=== PATIENT | female | born 1985 | race Caucasian/White ===

== ENCOUNTER 2016-12-17 10:52 | Emergency (ER) | payer OTHER ==
--- NOTE | 2016-12-17 16:23 | ED ORDER SUMMARY ---
..... Patient: SAUL DUNN OrderSheet [facility] VisitID: [id number] [place] [address] 31y, F Registration Date/Time: 12/17/2016 ORDER SHEET Weight: 63.5 kg Allergies: No Known Drug Allergy GENERAL ORDERS: Old Records ([place] from yesterday) (11:23 12/17/2016 Leandra ALTMAN) (Ack 11:24 PWeiler ER Tech1) (15:19 PWeiler ER Tech1) CBC w Diff Urgent (13:44 12/17/2016 Leandra ALTMAN) (Ack 13:49 PWeiler ER Tech1) (15:19 PWeiler ER Tech1) BMP Urgent (13:44 12/17/2016 Leandra ALTMAN) (Ack 13:49 PWeiler ER Tech1) (15:19 PWeiler ER Tech1) MEDICATION ORDERS: Phenergan IV 12.5 mg (NOW) (12:06 12/17/2016 Leandra ALTMAN) (12:23 SSambou R.N.) IV FLUIDS: Zofran IV 4 mg (NOW) (12:06 12/17/2016 Leandra ALTMAN) (12:22 SSambou R.N.) Demerol IV 12.5 mg (NOW) (13:08 12/17/2016 Leandra ALTMAN) (13:35 SSambou R.N.) ORDER SHEET NOTES: [Electronically signed by Laurie Amaro R.N. (17:09 12/17/2016)] [Electronically signed by Farrukh Holland MD (13:13 12/18/2016)] [Electronically locked/signed by Laurie Amaro R.N. (17:09 12/17/2016)]
--- NOTE | 2016-12-17 16:23 | ED ORDER SUMMARY ---
..... Patient: SAUL DUNN OrderSheet [facility] VisitID: [id number] [place] [address] 31y, F Registration Date/Time: 12/17/2016 ORDER SHEET Weight: 63.5 kg Allergies: No Known Drug Allergy GENERAL ORDERS: Old Records ([place] from yesterday) (11:23 12/17/2016 Leandra ALTMAN) (Ack 11:24 PWeiler ER Tech1) (15:19 PWeiler ER Tech1) CBC w Diff Urgent (13:44 12/17/2016 Leandra ALTMAN) (Ack 13:49 PWeiler ER Tech1) (15:19 PWeiler ER Tech1) BMP Urgent (13:44 12/17/2016 Leandra ALTMAN) (Ack 13:49 PWeiler ER Tech1) (15:19 PWeiler ER Tech1) MEDICATION ORDERS: Phenergan IV 12.5 mg (NOW) (12:06 12/17/2016 Leandra ALTMAN) (12:23 SSambou R.N.) IV FLUIDS: Zofran IV 4 mg (NOW) (12:06 12/17/2016 Leandra ALTMAN) (12:22 SSambou R.N.) Demerol IV 12.5 mg (NOW) (13:08 12/17/2016 Leandra ALTMAN) (13:35 SSambou R.N.) ORDER SHEET NOTES: [Electronically signed by Laurie Amaro R.N. (17:09 12/17/2016)] [Electronically signed by Farrukh Holland MD (13:13 12/18/2016)] [Electronically locked/signed by Laurie Amaro R.N. (17:09 12/17/2016)]
--- NOTE | 2016-12-17 16:23 | ED CLINICAL REPORT ---
Clinical Report - Physicians/Mid Levels [address] [place] [address] 12/17/2016 11:01 Patient: SAUL DUNN Time Seen: 11:14 Dec 17 2016. Arrived- By private vehicle. Historian- patient. CPT: ER phys charges level 4 (#[id number]). HISTORY OF PRESENT ILLNESS Chief Complaint: ABDOMINAL PAIN and VOMITING. At its maximum, severity described as moderate. When seen in the E.D., severity described as moderate. Modifying factors- worsened by movement. Not relieved by anything. This started today patient was hospitalized at [facility] for 3 days with a diagnosis of gonorrhea PID. Patient received antibiotics and was discharged on doxycycline. Patient has been unable to keep by mouth down today. Patient has also had no pain control. and is still present. It is described as "pain" and cramping and it is described as located in the right pelvis and left pelvis and in the pelvic area. The patient has had nausea and vomiting. No loss of appetite or diarrhea. No recent travel. Similar symptoms previously: None. Recent medical care: The patient was seen recently at another facility and hospitalized. REVIEW OF SYSTEMS No constipation, black stools, hematemesis, difficulty with urination or pain with urination. No urinary frequency, fever, sore throat, chest pain or difficulty breathing. No cough, joint pain, skin rash, chills or back pain. Denies current . All systems otherwise negative, except as recorded above. PAST HISTORY No history of peptic ulcer. No history of gallstones or bowel obstruction. Has not had urinary calculi. Surgeries: No prior abdominal surgery. Medications: Doxycycline Hyclate Oral (Capsule 100 mg). Allergies: No Known Drug Allergy. SOCIAL HISTORY Light tobacco smoker (cigarette)- less than 1/2 a pack per day. Occasional alcohol use. ADDITIONAL NOTES The nursing notes have been reviewed. PHYSICAL EXAM Vital Signs: 12/17/2016 11:18 BP: 112/53. HR: 50. RR: 14. O2 saturation: 100%. Temp: 97.7 F. Pain level now: 710. Appearance: Alert. Anxious. Appears to be in pain. Patient in moderate distress. Eyes: Eyes normal inspection. ENT: Pharynx normal. Neck: Normal inspection. CVS: Normal heart rate and rhythm. Heart sounds normal. Pulses normal. Respiratory: No respiratory distress. Breath sounds normal. Chest nontender. Abdomen: Soft. Moderate tenderness in the lower abdomen with guarding present. Bowel sounds normal. No mass. Back: Normal inspection. No CVA tenderness. Skin: Normal skin color. No rash. Neuro: Oriented X 3. LABS, X-RAYS, AND EKG Laboratory Tests: CBC w Diff: (CHRISTY: 12/17/2016 15:15) ( MsgRcvd 12/17/2016 15:23) Final results Test Result Flag Units (Reference) WHITE BLOOD COUNT 9.8 K/uL (4.5-11.5) RED BLOOD COUNT 4.15 M/uL (4.00-5.20) HEMOGLOBIN 12.7 gm/dL (12.0-16.0) HEMATOCRIT 38.6 % (36.0-46.0) MEAN CELL VOLUME 93 fL (80-100) MEAN CORPUSCULAR HGB 31 pg (26-34) MEAN CORPUSCULAR HGB CONC 33 g/dL (31-37) RED CELL DISTRIBUTION WIDTH 12.2 % (11.6-14.8) PLATELET COUNT 349 K/uL (150-400) NEUTROPHIL % 88.1 H % (50-75) LYMPH % 6.9 L % (25-40) MONO % 4.5 % (3-14) EOSINOPHIL % 0.2 % (0-4) BASOPHIL % 0.3 % (0-2) BMP: (CHRISTY: 12/17/2016 15:15) ( MsgRcvd 12/17/2016 15:48) Final results Test Result Flag Units (Reference) GLUCOSE 92 mg/dL (70-110) BUN 9 mg/dL (7-18) CREATININE 0.6 mg/dL (0.6-1.3) Estimated GFR >60 mL/min Estimated GFR- >60 mL/min Note: Persistent reduction over 3 months in eGFR<60 mL/min/1.73 m2 defines CKD. Patients with eGFR values>=60 mL/min/1.73 m2 may also have CKD if evidence ofpersistent proteinuria. Additional information may be foundat www.kidney.org. SODIUM 142 mmol/L (136-145) POTASSIUM 3.8 mmol/L (3.5-5.1) CHLORIDE 105 mmol/L (98-107) CARBON DIOXIDE 26 mmol/L (21-32) CALCIUM 9.2 mg/dL (8.5-10.1) . PROGRESS AND PROCEDURES Course of Care: Delay of 90 minutes in care due to no blood drawn. IV NS Zofran 4 mg Iv Phenergan 12.5 mg IV Demerol 12.5 mg Iv Patient is stable. Symptoms much better. Patient/family counseled. Old inpatient records reviewed. Disposition: Discharged. Condition: stable and improved. CLINICAL IMPRESSION Acute pelvic inflammatory disease due to gonococcal infection. Nausea and vomiting due to illness and pain. INSTRUCTIONS No strenuous activity. Rest. Do not work for two days until better. Drink plenty of fluids. No sexual contact until released. Warnings: Further evaluation is necessary. GENERAL WARNINGS: Return or contact your physician immediately if your condition worsens or changes unexpectedly, if not improving as expected, or if other problems arise. Your Current Medications: CONTINUE TAKING THE FOLLOWING MEDICATIONS: Doxycycline Hyclate Oral : Capsule 100 mg. Prescription Medications: Hydrocodone/APAP 5mg/325mg: take 1 to 2 orally every 6 hours as needed for pain. Dispense fifteen (15). No refills. Zofran (orally disintegrating tablets) 4 mg: take 1 orally every 6 hours as needed for nausea. Dispense ten (10). No refill. Substitution is permissible. Understanding of the discharge instructions verbalized by patient and family. Discharge instructions reviewed with and understanding was verbalized by [employer] field coordinator. (Electronically signed by Farrukh Holland MD 12/18/2016 13:13)
--- NOTE | 2016-12-17 16:23 | ED NURSING NOTES ---
Clinical Report - Nurses [facility] [place] [address] 12/17/2016 11:01 Patient: SAUL DUNN TRIAGE Triage time 11:19. Chief Complaint: ABDOMINAL PAIN, NAUSEA and VOMITING. --11:26 Sheriff Holbrook R.N. 11:18 12/17/16. BP: 112/53. HR: 50. RR: 14. O2 saturation: 100%. Temp: 97.7 F. Pain level now: 12/27. --11:26 Sheriff Holbrook R.N. Weight: 63.5 kg. Height/Length: 68 inches. BMI: 21.3. --11:23 Sheriff Holbrook R.N. Medications Doxycycline Hyclate Oral (Capsule 100 mg). --11:25 Sheriff Holbrook R.N. Allergies No Known Drug Allergy. --11:26 Sheriff Holbrook R.N. History Arrived by private vehicle. Historian: patient. Accompanied by family. Onset. (3AM.). ( Discharged from [facility] yesterday. Patient was admitted and treated for PID.). SURGERY HX: ( Face). SOCIAL HX: Light tobacco smoker- less than 1/2 a pack per day. Alcohol use; consumes beer occasionally. No drug use. FALL RISK ASSESSMENT: Fall risk assessment completed. No fall risk identified. NUTRITIONAL RISK ASSESSMENT: The nutritional risk assessment revealed no deficiencies. FUNCTIONAL ASSESSMENT: Functional assessment: no impairments noted. LEARNING NEEDS ASSESSMENT: The learning needs assessment revealed no barriers. SKIN INTEGRITY ASSESSMENT: Skin integrity risk assessment completed. No skin integrity risk identified. --11:26 Sheriff Holbrook R.N. PROBLEMS: Pelvic Inflammatory Disease. --11:22 Sheriff Holbrook R.N. PHYSICAL ASSESSMENT To room via wheelchair. Patient gowned. GENERAL / NEURO / PSYCH: Alert. Oriented X 4. Appears anxious. HEENT: Mucous membranes are pink. RESPIRATORY: Respirations not labored. CVS: Capillary refill less than 2 seconds. SKIN: Skin is warm and dry. --11:38 Sheriff Holbrook R.N. NURSING PROGRESS NOTES Head of bed elevated. Two patient identifiers checked. Call light placed in reach. Side rails up x 2. Bed placed in lowest position. Brakes of bed on. --11:38 Sheriff Holbrook R.N. 11:57 12/17/2016 Site #1 started via IV in the right forearm with an 22g angiocath, with aseptic technique and good blood return; one attempt. Saline lock flushed with 10 mL saline. --12:22 Sheriff Holbrook R.N. 12:17 12/17/2016 Zofran (Ondansetron HCl) IVP 4 mg given over 1 hour(s) via site #1. Allergies verified and confirmed 5 rights. IV patency established. IV site checked: no pain, redness, or swelling. IV flushed thoroughly pre- and post-medication administration. IVP given by RN. --12:22 Sheriff Holbrook R.N. 12:17 12/17/2016 PHENERGAN (Promethazine HCl) IVP 12.5 mg given over 1 minute(s) via site #1. Allergies verified and confirmed 5 rights. IV patency established. IV site checked: no pain, redness, or swelling. IV flushed thoroughly pre- and post-medication administration. IVP given by RN. --12:23 Sheriff Holbrook R.N. 13:35 12/17/2016 Demerol (Meperidine HCl) IVP 12.5 mg given over 1 minute(s) via site #1. Allergies verified and confirmed 5 rights. IV patency established. IV site checked: no pain, redness, or swelling. IV flushed thoroughly pre- and post-medication administration. IVP given by RN. --13:35 Sheriff Holbrook R.N. 14:24 12/17/16. BP: 101/55. HR: 63. RR: 18. O2 saturation: 99%. Temp: 98.7 F. --14:26 [place]. DISPOSITION / DISCHARGE 16:20 12/17/2016 Site #1 removed upon discharge. Catheter intact. Pressure dressing applied. --17:07 Laurie Amaro R.N. Departure time: 1634Dec 17 2016. Condition at departure: improved. No learning barriers present. Discharge instructions provided and reviewed with the patient and spouse. Reviewed warnings. Reviewed medication(s). Treatments reviewed. Reviewed referrals. Patient verbalized understanding. Written instructions provided in Nigerien. The patient was discharged home and accompanied by spouse. She left the Emergency Department in a wheelchair and via private vehicle. Spouse driving. --17:07 Laurie Amaro R.N. 17:04 12/17/16. BP: 131/69. HR: 54. RR: 18. O2 saturation: 98%. Temp: 98.7 F. Pain level now 08/27. --17:07 Laurie Amaro R.N. Locked/Released at 12/17/2016 17:09 by Laurie Amaro R.N.
--- NOTE | 2016-12-17 16:23 | ED NURSING NOTES ---
Clinical Report - Nurses [facility] [place] [address] 12/17/2016 11:01 Patient: SAUL DUNN TRIAGE Triage time 11:19. Chief Complaint: ABDOMINAL PAIN, NAUSEA and VOMITING. --11:26 Sheriff Holbrook R.N. 11:18 12/17/16. BP: 112/53. HR: 50. RR: 14. O2 saturation: 100%. Temp: 97.7 F. Pain level now: 12/27. --11:26 Sheriff Holbrook R.N. Weight: 63.5 kg. Height/Length: 68 inches. BMI: 21.3. --11:23 Sheriff Holbrook R.N. Medications Doxycycline Hyclate Oral (Capsule 100 mg). --11:25 Sheriff Holbrook R.N. Allergies No Known Drug Allergy. --11:26 Sheriff Holbrook R.N. History Arrived by private vehicle. Historian: patient. Accompanied by family. Onset. (3AM.). ( Discharged from [facility] yesterday. Patient was admitted and treated for PID.). SURGERY HX: ( Face). SOCIAL HX: Light tobacco smoker- less than 1/2 a pack per day. Alcohol use; consumes beer occasionally. No drug use. FALL RISK ASSESSMENT: Fall risk assessment completed. No fall risk identified. NUTRITIONAL RISK ASSESSMENT: The nutritional risk assessment revealed no deficiencies. FUNCTIONAL ASSESSMENT: Functional assessment: no impairments noted. LEARNING NEEDS ASSESSMENT: The learning needs assessment revealed no barriers. SKIN INTEGRITY ASSESSMENT: Skin integrity risk assessment completed. No skin integrity risk identified. --11:26 Sheriff Holbrook R.N. PROBLEMS: Pelvic Inflammatory Disease. --11:22 Sheriff Holbrook R.N. PHYSICAL ASSESSMENT To room via wheelchair. Patient gowned. GENERAL / NEURO / PSYCH: Alert. Oriented X 4. Appears anxious. HEENT: Mucous membranes are pink. RESPIRATORY: Respirations not labored. CVS: Capillary refill less than 2 seconds. SKIN: Skin is warm and dry. --11:38 Sheriff Holbrook R.N. NURSING PROGRESS NOTES Head of bed elevated. Two patient identifiers checked. Call light placed in reach. Side rails up x 2. Bed placed in lowest position. Brakes of bed on. --11:38 Sheriff Holbrook R.N. 11:57 12/17/2016 Site #1 started via IV in the right forearm with an 22g angiocath, with aseptic technique and good blood return; one attempt. Saline lock flushed with 10 mL saline. --12:22 Sheriff Holbrook R.N. 12:17 12/17/2016 Zofran (Ondansetron HCl) IVP 4 mg given over 1 hour(s) via site #1. Allergies verified and confirmed 5 rights. IV patency established. IV site checked: no pain, redness, or swelling. IV flushed thoroughly pre- and post-medication administration. IVP given by RN. --12:22 Sheriff Holbrook R.N. 12:17 12/17/2016 PHENERGAN (Promethazine HCl) IVP 12.5 mg given over 1 minute(s) via site #1. Allergies verified and confirmed 5 rights. IV patency established. IV site checked: no pain, redness, or swelling. IV flushed thoroughly pre- and post-medication administration. IVP given by RN. --12:23 Sheriff Holbrook R.N. 13:35 12/17/2016 Demerol (Meperidine HCl) IVP 12.5 mg given over 1 minute(s) via site #1. Allergies verified and confirmed 5 rights. IV patency established. IV site checked: no pain, redness, or swelling. IV flushed thoroughly pre- and post-medication administration. IVP given by RN. --13:35 Sheriff Holbrook R.N. 14:24 12/17/16. BP: 101/55. HR: 63. RR: 18. O2 saturation: 99%. Temp: 98.7 F. --14:26 [place]. DISPOSITION / DISCHARGE 16:20 12/17/2016 Site #1 removed upon discharge. Catheter intact. Pressure dressing applied. --17:07 Laurie Amaro R.N. Departure time: 1634Dec 17 2016. Condition at departure: improved. No learning barriers present. Discharge instructions provided and reviewed with the patient and spouse. Reviewed warnings. Reviewed medication(s). Treatments reviewed. Reviewed referrals. Patient verbalized understanding. Written instructions provided in Ghanaian. The patient was discharged home and accompanied by spouse. She left the Emergency Department in a wheelchair and via private vehicle. Spouse driving. --17:07 Laurie Amaro R.N. 17:04 12/17/16. BP: 131/69. HR: 54. RR: 18. O2 saturation: 98%. Temp: 98.7 F. Pain level now 08/27. --17:07 Laurie Amaro R.N. Locked/Released at 12/17/2016 17:09 by Laurie Amaro R.N.
--- NOTE | 2016-12-17 16:23 | ED CLINICAL REPORT ---
Clinical Report - Physicians/Mid Levels [facility] [address] [place] [address] 12/17/2016 11:01 Patient: SAUL DUNN Time Seen: 11:14 Dec 17 2016. Arrived- By private vehicle. Historian- patient. CPT: ER phys charges level 4 (#[id number]). HISTORY OF PRESENT ILLNESS Chief Complaint: ABDOMINAL PAIN and VOMITING. At its maximum, severity described as moderate. When seen in the E.D., severity described as moderate. Modifying factors- worsened by movement. Not relieved by anything. This started today patient was hospitalized at [facility] for 3 days with a diagnosis of gonorrhea PID. Patient received antibiotics and was discharged on doxycycline. Patient has been unable to keep by mouth down today. Patient has also had no pain control. and is still present. It is described as "pain" and cramping and it is described as located in the right pelvis and left pelvis and in the pelvic area. The patient has had nausea and vomiting. No loss of appetite or diarrhea. No recent travel. Similar symptoms previously: None. Recent medical care: The patient was seen recently at another facility and hospitalized. REVIEW OF SYSTEMS No constipation, black stools, hematemesis, difficulty with urination or pain with urination. No urinary frequency, fever, sore throat, chest pain or difficulty breathing. No cough, joint pain, skin rash, chills or back pain. Denies current . All systems otherwise negative, except as recorded above. PAST HISTORY No history of peptic ulcer. No history of gallstones or bowel obstruction. Has not had urinary calculi. Surgeries: No prior abdominal surgery. Medications: Doxycycline Hyclate Oral (Capsule 100 mg). Allergies: No Known Drug Allergy. SOCIAL HISTORY Light tobacco smoker (cigarette)- less than 1/2 a pack per day. Occasional alcohol use. ADDITIONAL NOTES The nursing notes have been reviewed. PHYSICAL EXAM Vital Signs: 12/17/2016 11:18 BP: 112/53. HR: 50. RR: 14. O2 saturation: 100%. Temp: 97.7 F. Pain level now: 710. Appearance: Alert. Anxious. Appears to be in pain. Patient in moderate distress. Eyes: Eyes normal inspection. ENT: Pharynx normal. Neck: Normal inspection. CVS: Normal heart rate and rhythm. Heart sounds normal. Pulses normal. Respiratory: No respiratory distress. Breath sounds normal. Chest nontender. Abdomen: Soft. Moderate tenderness in the lower abdomen with guarding present. Bowel sounds normal. No mass. Back: Normal inspection. No CVA tenderness. Skin: Normal skin color. No rash. Neuro: Oriented X 3. LABS, X-RAYS, AND EKG Laboratory Tests: CBC w Diff: (CHRISTY: 12/17/2016 15:15) ( MsgRcvd 12/17/2016 15:23) Final results Test Result Flag Units (Reference) WHITE BLOOD COUNT 9.8 K/uL (4.5-11.5) RED BLOOD COUNT 4.15 M/uL (4.00-5.20) HEMOGLOBIN 12.7 gm/dL (12.0-16.0) HEMATOCRIT 38.6 % (36.0-46.0) MEAN CELL VOLUME 93 fL (80-100) MEAN CORPUSCULAR HGB 31 pg (26-34) MEAN CORPUSCULAR HGB CONC 33 g/dL (31-37) RED CELL DISTRIBUTION WIDTH 12.2 % (11.6-14.8) PLATELET COUNT 349 K/uL (150-400) NEUTROPHIL % 88.1 H % (50-75) LYMPH % 6.9 L % (25-40) MONO % 4.5 % (3-14) EOSINOPHIL % 0.2 % (0-4) BASOPHIL % 0.3 % (0-2) BMP: (CHRISTY: 12/17/2016 15:15) ( MsgRcvd 12/17/2016 15:48) Final results Test Result Flag Units (Reference) GLUCOSE 92 mg/dL (70-110) BUN 9 mg/dL (7-18) CREATININE 0.6 mg/dL (0.6-1.3) Estimated GFR >60 mL/min Estimated GFR- >60 mL/min Note: Persistent reduction over 3 months in eGFR<60 mL/min/1.73 m2 defines CKD. Patients with eGFR values>=60 mL/min/1.73 m2 may also have CKD if evidence ofpersistent proteinuria. Additional information may be foundat www.kidney.org. SODIUM 142 mmol/L (136-145) POTASSIUM 3.8 mmol/L (3.5-5.1) CHLORIDE 105 mmol/L (98-107) CARBON DIOXIDE 26 mmol/L (21-32) CALCIUM 9.2 mg/dL (8.5-10.1) . PROGRESS AND PROCEDURES Course of Care: Delay of 90 minutes in care due to no blood drawn. IV NS Zofran 4 mg Iv Phenergan 12.5 mg IV Demerol 12.5 mg Iv Patient is stable. Symptoms much better. Patient/family counseled. Old inpatient records reviewed. Disposition: Discharged. Condition: stable and improved. CLINICAL IMPRESSION Acute pelvic inflammatory disease due to gonococcal infection. Nausea and vomiting due to illness and pain. INSTRUCTIONS No strenuous activity. Rest. Do not work for two days until better. Drink plenty of fluids. No sexual contact until released. Warnings: Further evaluation is necessary. GENERAL WARNINGS: Return or contact your physician immediately if your condition worsens or changes unexpectedly, if not improving as expected, or if other problems arise. Your Current Medications: CONTINUE TAKING THE FOLLOWING MEDICATIONS: Doxycycline Hyclate Oral : Capsule 100 mg. Prescription Medications: Hydrocodone/APAP 5mg/325mg: take 1 to 2 orally every 6 hours as needed for pain. Dispense fifteen (15). No refills. Zofran (orally disintegrating tablets) 4 mg: take 1 orally every 6 hours as needed for nausea. Dispense ten (10). No refill. Substitution is permissible. Understanding of the discharge instructions verbalized by patient and family. Discharge instructions reviewed with and understanding was verbalized by thermoscrew operator. (Electronically signed by Farrukh Holland MD 12/18/2016 13:13)
--- NOTE | 2016-12-18 13:14 | ED DISCHARGE INSTRUCTIONS ---
Patient: SAUL DUNN General Instructions [facility] VisitID: [id number] [place] [address] 31y, F Registration Date/Time: 12/17/2016 Acute pelvic inflammatory disease due to gonococcal infection. Nausea and vomiting due to illness and pain. INSTRUCTIONS No strenuous activity. Rest. Do not work for two days until better. Drink plenty of fluids. No sexual contact until released. Warnings: Further evaluation is necessary. GENERAL WARNINGS: Return or contact your physician immediately if your condition worsens or changes unexpectedly, if not improving as expected, or if other problems arise. Your Current Medications: CONTINUE TAKING THE FOLLOWING MEDICATIONS: Doxycycline Hyclate Oral : Capsule 100 mg. Prescription Medications: Hydrocodone/APAP 5mg/325mg: take 1 to 2 orally every 6 hours as needed for pain. Dispense fifteen (15). No refills. Zofran (orally disintegrating tablets) 4 mg: take 1 orally every 6 hours as needed for nausea. Dispense ten (10). No refill. Substitution is permissible. Understanding of the discharge instructions verbalized by patient and family. Discharge instructions reviewed with and understanding was verbalized by paint roller winder. ADDITIONAL INFORMATION Pelvic Inflammatory Disease Pelvic Inflammatory Disease (PID) is an infection of the female organs (uterus, ovary, or Fallopian tubes). This is most often the result of a sexually transmitted disease (STD). Sometimes, PID can be due to an overgrowth of normal bacteria and not caused by an STD. Whatever its cause, PID is a serious problem. It can lead to infertility (inability to become ) unless it is treated promptly. Home Care: Take all of the medicine prescribed, even if you start to feel better before taking all the pills. You may use acetaminophen (Tylenol) or ibuprofen (Motrin, Advil) to control pain, unless another pain medicine was prescribed. [NOTE: If you have chronic liver or kidney disease or ever had a stomach ulcer or GI bleeding, talk with your doctor before using these medicines.] Your sexual partner should contact his own doctor or go to the Public Health Department to be examined. If his test is positive or if he is having symptoms of discharge or burning when passing urine, he should be treated, too. Avoid sexual activity until both you and your partner have finished taking all of the antibiotic medicine, and your doctor has told you that you are cured. Learn about safe sex practices and use these in the future. The safest sex is with a partner who has tested negative and only has sex with you. Condoms offer protection from spreading some sexually transmitted diseases including Gonorrhea, Chlamydia and HIV, but are not a guarantee. Follow Up with your doctor or as advised by our staff. If a culture test was taken, you may call us in three days for the results, or as directed. Another culture test should be taken 4-6 weeks after treatment to be sure the infection has cleared. Follow up with your doctor or the Public Health Department for complete STD screening, including HIV testing. For more information about STD's, contact the National STD Hotline: . Get Prompt Medical Attention if any of the following occur: No improvement after three days of treatment New or increasing lower abdominal pain or back pain Unexpected vaginal bleeding Weakness, dizziness or fainting Repeated vomiting Inability to urinate due to pain Rash or joint pain Painful open sores around the outer vagina Enlarged painful lymph nodes (lumps) in the groin Gonorrhea [Female, Treated] You have an infection called Gonorrhea. This infection is a sexually transmitted disease (STD). It is highly contagious and passed by sexual contact with an infected partner. Gonorrhea can infect the internal sex organs (cervix, uterus or Fallopian tubes). Less often, it can infect the mouth, throat and anus. Women with an infection in the cervix may have no symptoms or only mild symptoms early in the illness. Therefore, it is possible to pass this infection without knowing you have it. When symptoms do occur in a woman, they usually start 2-10 days after exposure. There may be a thick vaginal discharge and pain or burning when passing urine. If the infection spreads to the Fallopian tubes it is called pelvic inflammatory disease ("PID"). This causes lower abdominal pain and fever. If not treated, Gonorrhea can cause infertility (unable to have children) by scarring the Fallopian tubes. PID also increases the risk of ectopic (tubal) in the future. Gonorrhea can be treated and cured. Treatment is with antibiotic medicine. Home Care: Your sexual partner needs to be treated even if there are no symptoms. Your partner should contact their own doctor or go to an urgent care clinic or the Public Health Department to be examined and treated. Avoid sexual activity until both you and your partner have completed all antibiotic medicine and you have been told by your doctor that you are no longer contagious. It is important to take all medicine as directed until it is finished. If not, the illness may recur. Learn about safe sex practices and use these in the future. The safest sex is with a partner who has tested negative and only has sex with you. Condoms offer protection from spreading some sexually transmitted diseases including Gonorrhea, Chlamydia and HIV, but are not a guarantee. Follow Up with your doctor or as advised by our staff. If a culture test was taken, you may call us in three days for the results, or as directed. Another culture test should be taken 4-6 weeks after treatment to be sure the infection has cleared. Follow up with your doctor or the Public Health Department for complete STD screening, including HIV testing. For more information about STD's, contact the National STD Hotline: . Get Prompt Medical Attention if any of the following occur: No improvement after three days of treatment New or increasing lower abdominal pain or back pain Unexpected vaginal bleeding Weakness, dizziness or fainting Repeated vomiting Inability to urinate due to pain Rash or joint pain Painful sores on the outer vaginal area Enlarged painful lymph nodes (lumps) in the groin Ondansetron Oral disintegrating tablet What is this medicine? ONDANSETRON (on JORI se anthony) is used to treat nausea and vomiting caused by chemotherapy. It is also used to prevent or treat nausea and vomiting after surgery. How should I use this medicine? These tablets are made to dissolve in the mouth. Do not try to push the tablet through the foil backing. With dry hands, peel away the foil backing and gently remove the tablet. Place the tablet in the mouth and allow it to dissolve, then swallow. While you may take these tablets with water, it is not necessary to do so. Talk to your management intern regarding the use of this medicine in children. Special care may be needed. What side effects may I notice from receiving this medicine? Side effects that you should report to your doctor or health career technical counselor as soon as possible: allergic reactions like skin rash, itching or hives, swelling of the face, lips, or tongue breathing problems dizziness fast or irregular heartbeat feeling faint or lightheaded, falls fever and chills swelling of the hands and feet tightness in the chest Side effects that usually do not require medical attention (report to your doctor or health career technical counselor if they continue or are bothersome): constipation or diarrhea headache What may interact with this medicine? Do not take this medicine with any of the following medications: -apomorphine -cisapride -dofetilide -dronedarone -pimozide -thioridazine -ziprasidone This medicine may also interact with the following medications: -carbamazepine -phenytoin -rifampicin -tramadol -other medicines that prolong the QT interval (cause an abnormal heart rhythm) What if I miss a dose? If you miss a dose, take it as soon as you can. If it is almost time for your next dose, take only that dose. Do not take double or extra doses. Where should I keep my medicine? Keep out of the reach of children. Store between 2 and 30 degrees C (36 and 86 degrees F). Throw away any unused medicine after the expiration date. What should I tell my health care provider before I take this medicine? They need to know if you have any of these conditions: heart disease history of irregular heartbeat liver disease low levels of magnesium or potassium in the blood an unusual or allergic reaction to ondansetron, granisetron, other medicines, foods, dyes, or preservatives or trying to get breast-feeding What should I watch for while using this medicine? Check with your doctor or health career technical counselor as soon as you can if you have any sign of an allergic reaction. You have been given the following additional information: Pelvic Inflammatory Disease Gonorrhea, Female Ondansetron Oral disintegrating tablet No strenuous activity. Rest. Do not work for two days until better. (Electronically signed by Farrukh Holland MD 12/18/2016 13:13)
--- NOTE | 2016-12-18 13:14 | ED MAR SUMMARY ---
..... Medication Administration Record [facility] [address] [place] [address] Patient: SAUL DUNN Visit ID: [id number] 31y, F Weight: 63.5 kg Height/Length: 68 in BMI: 21.3 ALLERGIES: No Known Drug Allergy Given 12:17 12/17/2016 Sheriff Holbrook R.N. Medication Administered: ZOFRAN [IVP] (ONDANSETRON HCL), Dose: 4 mg IVP over 1 hour(s), Site: #1 right forearm. Medication Ordered: Zofran IV 4 mg (NOW). Given 12:17 12/17/2016 Sheriff Holbrook R.N. Medication Administered: PHENERGAN [IVP] (PROMETHAZINE HCL), Dose: 12.5 mg IVP over 1 minute(s), Site: #1 right forearm. Medication Ordered: Phenergan IV 12.5 mg (NOW). Given 13:35 12/17/2016 Sheriff Holbrook R.NMagui Medication Administered: DEMEROL [IVP] (MEPERIDINE HCL), Dose: 12.5 mg IVP over 1 minute(s), Site: #1 right forearm. Medication Ordered: Demerol IV 12.5 mg (NOW).
--- NOTE | 2016-12-18 13:14 | ED DISCHARGE INSTRUCTIONS ---
Patient: SAUL DUNN General Instructions [facility] VisitID: [id number] [place] [address] 31y, F Registration Date/Time: 12/17/2016 Acute pelvic inflammatory disease due to gonococcal infection. Nausea and vomiting due to illness and pain. INSTRUCTIONS No strenuous activity. Rest. Do not work for two days until better. Drink plenty of fluids. No sexual contact until released. Warnings: Further evaluation is necessary. GENERAL WARNINGS: Return or contact your physician immediately if your condition worsens or changes unexpectedly, if not improving as expected, or if other problems arise. Your Current Medications: CONTINUE TAKING THE FOLLOWING MEDICATIONS: Doxycycline Hyclate Oral : Capsule 100 mg. Prescription Medications: Hydrocodone/APAP 5mg/325mg: take 1 to 2 orally every 6 hours as needed for pain. Dispense fifteen (15). No refills. Zofran (orally disintegrating tablets) 4 mg: take 1 orally every 6 hours as needed for nausea. Dispense ten (10). No refill. Substitution is permissible. Understanding of the discharge instructions verbalized by patient and family. Discharge instructions reviewed with and understanding was verbalized by border inspector. ADDITIONAL INFORMATION Pelvic Inflammatory Disease Pelvic Inflammatory Disease (PID) is an infection of the female organs (uterus, ovary, or Fallopian tubes). This is most often the result of a sexually transmitted disease (STD). Sometimes, PID can be due to an overgrowth of normal bacteria and not caused by an STD. Whatever its cause, PID is a serious problem. It can lead to infertility (inability to become ) unless it is treated promptly. Home Care: Take all of the medicine prescribed, even if you start to feel better before taking all the pills. You may use acetaminophen (Tylenol) or ibuprofen (Motrin, Advil) to control pain, unless another pain medicine was prescribed. [NOTE: If you have chronic liver or kidney disease or ever had a stomach ulcer or GI bleeding, talk with your doctor before using these medicines.] Your sexual partner should contact his own doctor or go to the Public Health Department to be examined. If his test is positive or if he is having symptoms of discharge or burning when passing urine, he should be treated, too. Avoid sexual activity until both you and your partner have finished taking all of the antibiotic medicine, and your doctor has told you that you are cured. Learn about safe sex practices and use these in the future. The safest sex is with a partner who has tested negative and only has sex with you. Condoms offer protection from spreading some sexually transmitted diseases including Gonorrhea, Chlamydia and HIV, but are not a guarantee. Follow Up with your doctor or as advised by our staff. If a culture test was taken, you may call us in three days for the results, or as directed. Another culture test should be taken 4-6 weeks after treatment to be sure the infection has cleared. Follow up with your doctor or the Public Health Department for complete STD screening, including HIV testing. For more information about STD's, contact the National STD Hotline: . Get Prompt Medical Attention if any of the following occur: No improvement after three days of treatment New or increasing lower abdominal pain or back pain Unexpected vaginal bleeding Weakness, dizziness or fainting Repeated vomiting Inability to urinate due to pain Rash or joint pain Painful open sores around the outer vagina Enlarged painful lymph nodes (lumps) in the groin Gonorrhea [Female, Treated] You have an infection called Gonorrhea. This infection is a sexually transmitted disease (STD). It is highly contagious and passed by sexual contact with an infected partner. Gonorrhea can infect the internal sex organs (cervix, uterus or Fallopian tubes). Less often, it can infect the mouth, throat and anus. Women with an infection in the cervix may have no symptoms or only mild symptoms early in the illness. Therefore, it is possible to pass this infection without knowing you have it. When symptoms do occur in a woman, they usually start 2-10 days after exposure. There may be a thick vaginal discharge and pain or burning when passing urine. If the infection spreads to the Fallopian tubes it is called pelvic inflammatory disease ("PID"). This causes lower abdominal pain and fever. If not treated, Gonorrhea can cause infertility (unable to have children) by scarring the Fallopian tubes. PID also increases the risk of ectopic (tubal) in the future. Gonorrhea can be treated and cured. Treatment is with antibiotic medicine. Home Care: Your sexual partner needs to be treated even if there are no symptoms. Your partner should contact their own doctor or go to an urgent care clinic or the Public Health Department to be examined and treated. Avoid sexual activity until both you and your partner have completed all antibiotic medicine and you have been told by your doctor that you are no longer contagious. It is important to take all medicine as directed until it is finished. If not, the illness may recur. Learn about safe sex practices and use these in the future. The safest sex is with a partner who has tested negative and only has sex with you. Condoms offer protection from spreading some sexually transmitted diseases including Gonorrhea, Chlamydia and HIV, but are not a guarantee. Follow Up with your doctor or as advised by our staff. If a culture test was taken, you may call us in three days for the results, or as directed. Another culture test should be taken 4-6 weeks after treatment to be sure the infection has cleared. Follow up with your doctor or the Public Health Department for complete STD screening, including HIV testing. For more information about STD's, contact the National STD Hotline: . Get Prompt Medical Attention if any of the following occur: No improvement after three days of treatment New or increasing lower abdominal pain or back pain Unexpected vaginal bleeding Weakness, dizziness or fainting Repeated vomiting Inability to urinate due to pain Rash or joint pain Painful sores on the outer vaginal area Enlarged painful lymph nodes (lumps) in the groin Ondansetron Oral disintegrating tablet What is this medicine? ONDANSETRON (on JORI se anthony) is used to treat nausea and vomiting caused by chemotherapy. It is also used to prevent or treat nausea and vomiting after surgery. How should I use this medicine? These tablets are made to dissolve in the mouth. Do not try to push the tablet through the foil backing. With dry hands, peel away the foil backing and gently remove the tablet. Place the tablet in the mouth and allow it to dissolve, then swallow. While you may take these tablets with water, it is not necessary to do so. Talk to your internal combustion engineer regarding the use of this medicine in children. Special care may be needed. What side effects may I notice from receiving this medicine? Side effects that you should report to your doctor or health women's health care nurse practitioner as soon as possible: allergic reactions like skin rash, itching or hives, swelling of the face, lips, or tongue breathing problems dizziness fast or irregular heartbeat feeling faint or lightheaded, falls fever and chills swelling of the hands and feet tightness in the chest Side effects that usually do not require medical attention (report to your doctor or health women's health care nurse practitioner if they continue or are bothersome): constipation or diarrhea headache What may interact with this medicine? Do not take this medicine with any of the following medications: -apomorphine -cisapride -dofetilide -dronedarone -pimozide -thioridazine -ziprasidone This medicine may also interact with the following medications: -carbamazepine -phenytoin -rifampicin -tramadol -other medicines that prolong the QT interval (cause an abnormal heart rhythm) What if I miss a dose? If you miss a dose, take it as soon as you can. If it is almost time for your next dose, take only that dose. Do not take double or extra doses. Where should I keep my medicine? Keep out of the reach of children. Store between 2 and 30 degrees C (36 and 86 degrees F). Throw away any unused medicine after the expiration date. What should I tell my health care provider before I take this medicine? They need to know if you have any of these conditions: heart disease history of irregular heartbeat liver disease low levels of magnesium or potassium in the blood an unusual or allergic reaction to ondansetron, granisetron, other medicines, foods, dyes, or preservatives or trying to get breast-feeding What should I watch for while using this medicine? Check with your doctor or health women's health care nurse practitioner as soon as you can if you have any sign of an allergic reaction. You have been given the following additional information: Pelvic Inflammatory Disease Gonorrhea, Female Ondansetron Oral disintegrating tablet No strenuous activity. Rest. Do not work for two days until better. (Electronically signed by Farrukh Holland MD 12/18/2016 13:13)
--- NOTE | 2016-12-18 13:14 | ED MED RECONCILIATION SUMMARY ---
Patient: SAUL DUNN Medication Reconciliation Report [facility] VisitID: [id number] [place] [address] 31y, F Registration Date/Time: 12/17/2016 Weight: 63.5 kg Height/Length: 68 in. BMI: 21.3 ALLERGIES: No Known Drug Allergy The patient's Home Medications are listed below: CONTINUE TAKING THE FOLLOWING MEDICATIONS: Doxycycline Hyclate Oral (100 mg) The source(s) of the original Home Medication information: Not obtained. The following Medications were given to the patient in the Emergency Department: Zofran [IVP] IVP 4 mg, administered: 12/17/2016 12:17:00 PM PHENERGAN [IVP] IVP 12.5 mg, administered: 12/17/2016 12:17:00 PM Demerol [IVP] IVP 12.5 mg, administered: 12/17/2016 1:35:00 PM The following Medications were prescribed to the patient: Hydrocodone/APAP 5mg/325mg: take 1 to 2 orally every 6 hours as needed for pain. Dispense fifteen (15). No refills. -- Farrukh Holland MD Zofran (orally disintegrating tablets) 4 mg: take 1 orally every 6 hours as needed for nausea. Dispense ten (10). No refill. Substitution is permissible. -- Farrukh Holland MD
--- NOTE | 2016-12-18 13:14 | ED MAR SUMMARY ---
..... Medication Administration Record [facility] [address] [place] [address] Patient: SAUL DUNN Visit ID: [id number] 31y, F Weight: 63.5 kg Height/Length: 68 in BMI: 21.3 ALLERGIES: No Known Drug Allergy Given 12:17 12/17/2016 Sheriff Holbrook R.N. Medication Administered: ZOFRAN [IVP] (ONDANSETRON HCL), Dose: 4 mg IVP over 1 hour(s), Site: #1 right forearm. Medication Ordered: Zofran IV 4 mg (NOW). Given 12:17 12/17/2016 Sheriff Holbrook R.N. Medication Administered: PHENERGAN [IVP] (PROMETHAZINE HCL), Dose: 12.5 mg IVP over 1 minute(s), Site: #1 right forearm. Medication Ordered: Phenergan IV 12.5 mg (NOW). Given 13:35 12/17/2016 Sheriff Holbrook R.NMagui Medication Administered: DEMEROL [IVP] (MEPERIDINE HCL), Dose: 12.5 mg IVP over 1 minute(s), Site: #1 right forearm. Medication Ordered: Demerol IV 12.5 mg (NOW).
--- NOTE | 2016-12-18 13:14 | ED MED RECONCILIATION SUMMARY ---
Patient: SAUL DUNN Medication Reconciliation Report [facility] VisitID: [id number] [place] [address] 31y, F Registration Date/Time: 12/17/2016 Weight: 63.5 kg Height/Length: 68 in. BMI: 21.3 ALLERGIES: No Known Drug Allergy The patient's Home Medications are listed below: CONTINUE TAKING THE FOLLOWING MEDICATIONS: Doxycycline Hyclate Oral (100 mg) The source(s) of the original Home Medication information: Not obtained. The following Medications were given to the patient in the Emergency Department: Zofran [IVP] IVP 4 mg, administered: 12/17/2016 12:17:00 PM PHENERGAN [IVP] IVP 12.5 mg, administered: 12/17/2016 12:17:00 PM Demerol [IVP] IVP 12.5 mg, administered: 12/17/2016 1:35:00 PM The following Medications were prescribed to the patient: Hydrocodone/APAP 5mg/325mg: take 1 to 2 orally every 6 hours as needed for pain. Dispense fifteen (15). No refills. -- Farrukh Holland MD Zofran (orally disintegrating tablets) 4 mg: take 1 orally every 6 hours as needed for nausea. Dispense ten (10). No refill. Substitution is permissible. -- Farrukh Holland MD
== END 2016-12-17 16:35 | disposition home or self-care (01) ==
LOC: ED SRH 10:52
DX: N73.9 Female pelvic inflammatory disease, unspecified (principal); A54.9 Gonococcal infection, unspecified; R11.2 Nausea with vomiting, unspecified; R10.30 Lower abdominal pain, unspecified; F17.210 Nicotine dependence, cigarettes, uncomplicated
CPT/HCPCS: 90047; 95059